=== PATIENT | male | born 1970 | race Caucasian/White ===

== ENCOUNTER 2020-12-06 08:27 | Emergency (ER) | payer BC ==
[~2020-12-06] VITALS: Ht 177.8 cm; Wt 35.0 kg
[2020-12-06 08:44] VITALS: BP 135/96
[2020-12-06] MEDS ORDERED: thiamine 100mg/ml 2ml inj. IV ONE (08:50)
[2020-12-06] MEDS ORDERED: normal saline 1000ML IV soln IV ONE (08:50)
[2020-12-06] MEDS ORDERED: folic acid 1mg/0.2ml inj IV ONE (08:50)
[2020-12-06 09:12] LABS: BASOPHILS % (AUTO) 0.6 % (0-1); EOSINOPHILS # (AUTO) 0.3 X10'3 (0-0.9); EOSINOPHILS % (AUTO) 5.5 % (0-6); HEMATOCRIT 42.7 % (42.0-52.0); HEMOGLOBIN 14.4 g/dl (14.0-17.9); LYMPHOCYTES # (AUTO) 1.2 X10'3 (1.1-4.8); LYMPHOCYTES % (AUTO) 24.4 % (21-51); MEAN CORPUSCULAR HEMOGLOBIN 33.7 PG (27.0-31.0); MEAN CORPUSCULAR HGB CONC 33.8 g/dL (33.0-36.5); MEAN CORPUSCULAR VOLUME 99.6 FL (78-98); MEAN PLATELET VOLUME 7.4 FL (7.4-10.4); MONOCYTES # (AUTO) 0.5 X10'3 (0-0.9); MONOCYTES % (AUTO) 9.9 % (2-12); NEUTROPHILS % (AUTO) 59.6 % (42-75); PLATELET COUNT 216 X10'3 (140-440); RED BLOOD COUNT 4.29 X10'6 (4.70-6.10); RED CELL DISTRIBUTION WIDTH 13.7 % (11.5-14.5); WHITE BLOOD COUNT 5.1 X10'3 (4.5-11.0)
[2020-12-06 09:28] LABS: ALANINE AMINOTRANSFERASE 75 U/L (12-78); ALBUMIN 3.8 G/DL (3.4-5.0); ALKALINE PHOSPHATASE 79 IU/L (46-116); ANION GAP 9 (8-16); ASPARTATE AMINO TRANSFERASE 75 U/L (10-37); BILIRUBIN,TOTAL 0.7 MG/DL (0.1-1.0); BLOOD UREA NITROGEN 21 MG/DL (7-18); BUN/CREATININE RATIO 26.9 (5.4-32.0); CALCIUM 9.4 MG/DL (8.5-10.1); CHLORIDE 101 MMOL/L (99-107); CREATININE 0.78 MG/DL (0.60-1.10); GLUCOSE 104 MG/DL (70-104); LIPASE 141 U/L (73-393); MAGNESIUM 1.8 MG/DL (1.5-2.4); POTASSIUM 3.6 MMOL/L (3.5-5.1); SODIUM 139 MMOL/L (135-145); TOTAL CARBON DIOXIDE 29.5 MMOL/L (24-32); TOTAL PROTEIN 7.5 G/DL (6.4-8.2); eGFR > 90 ML/MIN
[2020-12-06 09:34] LABS: ETHANOL < 0.010 GM/DL (0.0-0.010)
[2020-12-06] MEDS ORDERED: LORA-269 PO (12:20)
[2020-12-06] MEDS ORDERED: ONDA4TAB6 PO (12:20)
[2020-12-06] MEDS ORDERED: GABA300C PO (12:20)
== END 2020-12-06 12:36 | disposition home or self-care (01) ==
LOC: ER 08:27
DX: F10.139 Alcohol abuse with withdrawal, unspecified (principal); R19.7 Diarrhea, unspecified; R42 Dizziness and giddiness; E86.0 Dehydration; F17.200 Nicotine dependence, unspecified, uncomplicated; Z72.89 Other problems related to lifestyle; Z88.8 Allergy status to other drugs, medicaments and biological substances; Z79.899 Other long term (current) drug therapy
CPT/HCPCS: 36415; 80053; 80320; 83690; 83735; 85025; 93005; 99284

== ENCOUNTER 2021-09-18 20:16 | Inpatient (IN) | payer BC, MEDICAID ==
[~2021-09-18] VITALS: Ht 177.8 cm; Wt 84.1 kg
[~2021-09-18 20:16] MED LIST: GABA300C PO; LORA-269 PO; ONDA4TAB6 PO
[2021-09-18] MEDS ORDERED: normal saline 1000ML IV soln IVB ONE (23:35)
[2021-09-18] MEDS ORDERED: normal saline 1000ml 1,000 ML IV ONE (23:35)
[2021-09-18] MEDS ORDERED: thiamine 100mg/ml 2ml inj. IV ONE (23:35)
[2021-09-18] MEDS ORDERED: magnesium 2GM in 50ml NS 50 ML IV ONE (23:35)
[2021-09-18] MEDS ORDERED: thiamine inj. 500 MG in normal saline 100ml IV soln 100 ML IV ONE (23:40)
[2021-09-19 00:01] LABS: BASOPHILS % (AUTO) 0.6 % (0-1); EOSINOPHILS # (AUTO) 0.2 X10'3 (0-0.9); EOSINOPHILS % (AUTO) 3.1 % (0-6); HEMOGLOBIN 13.5 g/dl (14.0-17.9); LYMPHOCYTES # (AUTO) 2.2 X10'3 (1.1-4.8); LYMPHOCYTES % (AUTO) 29.4 % (21-51); MEAN CORPUSCULAR HEMOGLOBIN 34.3 PG (27.0-31.0); MEAN CORPUSCULAR HGB CONC 34.5 g/dL (33.0-36.5); MEAN CORPUSCULAR VOLUME 99.5 FL (78-98); MEAN PLATELET VOLUME 7.1 FL (7.4-10.4); MONOCYTES # (AUTO) 0.6 X10'3 (0-0.9); MONOCYTES % (AUTO) 8.3 % (2-12); NEUTROPHILS # (AUTO) 4.3 X10'3 (1.8-7.7); NEUTROPHILS % (AUTO) 58.6 % (42-75); PLATELET COUNT 224 X10'3 (140-440); RED BLOOD COUNT 3.92 X10'6 (4.70-6.10); RED CELL DISTRIBUTION WIDTH 14.7 % (11.5-14.5); WHITE BLOOD COUNT 7.3 X10'3 (4.5-11.0)
[2021-09-19 00:14] LABS: ALANINE AMINOTRANSFERASE 83 U/L (12-78); ALBUMIN 3.7 G/DL (3.4-5.0); ALKALINE PHOSPHATASE 69 IU/L (46-116); ANION GAP 12 (8-16); ASPARTATE AMINO TRANSFERASE 58 U/L (10-37); BILIRUBIN,TOTAL 0.3 MG/DL (0.1-1.0); BLOOD UREA NITROGEN 15 MG/DL (7-18); CALCIUM 8.6 MG/DL (8.5-10.1); CHLORIDE 106 MMOL/L (99-107); GLUCOSE 93 MG/DL (70-104); POTASSIUM 3.7 MMOL/L (3.5-5.1); SODIUM 143 MMOL/L (135-145); TOTAL CARBON DIOXIDE 25.2 MMOL/L (24-32); TOTAL PROTEIN 7.5 G/DL (6.4-8.2); eGFR > 90 ML/MIN
[2021-09-19 00:17] LABS: ETHANOL 0.136 GM/DL (0.0-0.010); LIPASE 205 U/L (73-393)
[2021-09-19] MEDS ORDERED: potassium CL 10mEq/100ml bag 100 ML IV PRN (03:00)
[2021-09-19] MEDS ORDERED: HYDROcodone/acetaminophen 5mg/325mg tablet PO PRN (03:00)
[2021-09-19] MEDS ORDERED: magnesium Cl slow-release 64mg tablet PO PRN (03:00)
[2021-09-19] MEDS ORDERED: magnesium 2GM in 50ml NS 50 ML IV PRN (03:00)
[2021-09-19] MEDS ORDERED: LORazepam 2 mg/ml vial IV PRN ×5 (03:00)
[2021-09-19] MEDS ORDERED: dextrose 50%-water 50ml dispensing syringe IV PRN (03:00)
[2021-09-19] MEDS ORDERED: dicyclomine 10 MG capsule PO PRN (03:00)
[2021-09-19] MEDS ORDERED: POTASSIUM BICARB 20meq eff tab 20 MEQ TABLET.EFF PO PRN ×2 (03:00)
[2021-09-19] MEDS ORDERED: magnesium hydroxide 30ml (MOM) UD suspension PO PRN (03:00)
[2021-09-19] MEDS ORDERED: loperamide 2mg capsule PO PRN (03:00)
[2021-09-19] MEDS ORDERED: mag hydrox/Alum hydrox/simeth 30ml oral suspension PO PRN (03:00)
[2021-09-19] MEDS ORDERED: acetaminophen 325mg tablet PO PRN (03:00)
[2021-09-19] MEDS ORDERED: diphenhydrAMINE 25mg capsule PO PRN (03:00)
[2021-09-19] MEDS ORDERED: magnesium 4gm in 100ml NS 100 ML IV PRN (03:00)
[2021-09-19] MEDS ORDERED: haloperidol lactate 5mg/ml inj IM PRN ×3 (03:00)
[2021-09-19] MEDS ORDERED: ondansetron/PF 4mg/2ml inj IV PRN (03:00)
[2021-09-19] MEDS ORDERED: haloperidol 5mg tablet PO PRN (03:00)
[2021-09-19] MEDS: LORazepam 1 MG tablet PO PRN ×2 (03:32→13:36)
[2021-09-19 03:34] LABS: MAGNESIUM 1.8 MG/DL (1.5-2.4)
[2021-09-19] MEDS ORDERED: nicotine 14mg patch - 24hr TD ONE (05:25)
[2021-09-19] MEDS ORDERED: folic acid 1mg/0.2ml inj IV SCH (08:00)
[2021-09-19] MEDS ORDERED: thiamine 100mg/ml 2ml inj. IV SCH (08:00)
[2021-09-19] MEDS: enoxaparin 40mg/0.4ml syringe SUBCUT SCH (09:10)
[2021-09-19] MEDS: folic acid 1mg/0.2ml inj IV SCH (09:11)
[2021-09-19] MEDS: thiamine 100mg/ml 2ml inj. IV SCH ×3 (09:11→21:00)
[2021-09-19] MEDS: multivitamins, therapeutics tablet PO SCH (09:11)
[2021-09-19] MEDS: K and/or MAG REPLACEMENT MC SCH ×2 (09:12→20:00)
[2021-09-19] MEDS: docusate sod 100mg capsule PO SCH ×2 (09:12→20:00)
--- NOTE | 2021-09-19 10:08 | NUR ---
Met with patient in regards to alcohol use and to see if patient is interested in resources for treatment options. Patient is interested in outpatient rehab. I talked to patient about getting a sponsor and medication that can help with cravings. I gave patient a list of resources and my card to call me if he has any questions.
[2021-09-19] MEDS ORDERED: NO HOME MEDS (13:59)
--- NOTE | 2021-09-19 18:21 | NUR ---
ASSUMED CARE OF PT. PT WITH EYES CLOSE NON LABORED BREATHING POST ATIVAN. VSS. NO S/S OF DISTRESS. WILL MONITOR.
--- NOTE | 2021-09-20 00:45 | NUR ---
Pt smokes Marijuana once a month and drinks hard alcohol daily. Has hx of heavy cocaine use aprox 10 years ago. Addendum: 09/20/21 at 0106 by Marj Giron RN Amended: Links added.
[2021-09-20 01:28] VITALS: BP 160/106
[2021-09-20] MEDS: LORazepam 1 MG tablet PO PRN ×3 (01:34→10:45)
[2021-09-20 06:00] VITALS: BP 132/94
--- NOTE | 2021-09-20 06:05 | NUR ---
received report from bam rosa
--- NOTE | 2021-09-20 06:05 | NUR ---
Problems reprioritized. Patient report given, questions answered & plan of care reviewed with RN. Addendum: 09/20/21 at 0606 by Easton Ruiz RN Amended: Links added.
[2021-09-20 06:59] LABS: BASOPHILS % (AUTO) 0.7 % (0-1); EOSINOPHILS # (AUTO) 0.3 X10'3 (0-0.9); EOSINOPHILS % (AUTO) 5.5 % (0-6); HEMATOCRIT 37.5 % (42.0-52.0); HEMOGLOBIN 12.8 g/dl (14.0-17.9); LYMPHOCYTES # (AUTO) 1.5 X10'3 (1.1-4.8); LYMPHOCYTES % (AUTO) 27.3 % (21-51); MEAN CORPUSCULAR HEMOGLOBIN 34.1 PG (27.0-31.0); MEAN CORPUSCULAR HGB CONC 34.1 g/dL (33.0-36.5); MEAN CORPUSCULAR VOLUME 100.1 FL (78-98); MEAN PLATELET VOLUME 8.1 FL (7.4-10.4); MONOCYTES # (AUTO) 0.6 X10'3 (0-0.9); MONOCYTES % (AUTO) 10.7 % (2-12); NEUTROPHILS % (AUTO) 55.8 % (42-75); PLATELET COUNT 197 X10'3 (140-440); RED BLOOD COUNT 3.74 X10'6 (4.70-6.10); RED CELL DISTRIBUTION WIDTH 14.6 % (11.5-14.5); WHITE BLOOD COUNT 5.4 X10'3 (4.5-11.0)
[2021-09-20] MEDS: thiamine 100mg/ml 2ml inj. IV SCH (07:04)
[2021-09-20] MEDS: folic acid 1mg/0.2ml inj IV SCH (07:05)
[2021-09-20] MEDS: docusate sod 100mg capsule PO SCH (07:09)
[2021-09-20 07:27] LABS: ALANINE AMINOTRANSFERASE 61 U/L (12-78); ALBUMIN 3.1 G/DL (3.4-5.0); ALKALINE PHOSPHATASE 48 IU/L (46-116); AMYLASE 42 U/L (25-115); ANION GAP 9 (8-16); ASPARTATE AMINO TRANSFERASE 39 U/L (10-37); BILIRUBIN,TOTAL 0.6 MG/DL (0.1-1.0); BLOOD UREA NITROGEN 9 MG/DL (7-18); BUN/CREATININE RATIO 17.6 (5.4-32.0); CALCIUM 8.7 MG/DL (8.5-10.1); CHLORIDE 109 MMOL/L (99-107); CREATININE 0.51 MG/DL (0.60-1.10); GLUCOSE 93 MG/DL (70-104); LIPASE 52 U/L (73-393); MAGNESIUM 1.6 MG/DL (1.5-2.4); PHOSPHORUS 3.4 MG/DL (2.3-4.5); POTASSIUM 3.8 MMOL/L (3.5-5.1); SODIUM 143 MMOL/L (135-145); TOTAL PROTEIN 6.3 G/DL (6.4-8.2); eGFR > 90 ML/MIN
[2021-09-20] MEDS: K and/or MAG REPLACEMENT MC SCH (08:00)
[2021-09-20] MEDS: multivitamins, therapeutics tablet PO SCH (08:00)
[2021-09-20] MEDS: enoxaparin 40mg/0.4ml syringe SUBCUT SCH (08:00)
[2021-09-20 10:00] VITALS: BP 122/89
[2021-09-20] MEDS ORDERED: pneumococcal 23-VAL P-sac vacc 25 mcg/0.5ml vial IMVAC ONE (10:00)
[2021-09-20] MEDS ORDERED: MULT-1085 PO ×2 (10:49)
[2021-09-20] MEDS ORDERED: NALT50TA PO ×2 (10:49)
[2021-09-20] MEDS ORDERED: FOLI0.4T6 PO (10:49)
[2021-09-20] MEDS ORDERED: THIA50TA10 PO ×2 (10:49)
[2021-09-20] MEDS ORDERED: NICO-731 TOP ×2 (10:51)
--- NOTE | 2021-09-20 13:33 | NUR ---
pt refused his pneumovaccine, pt d/c with instructions, understanding of instructions and w/all belongings walking out to private vehicle to go home and f/u w/pcp
[2021-09-21] MEDS ORDERED: LORazepam 2 mg/ml vial IV PRN (03:00)
[2021-09-21] MEDS ORDERED: LORazepam 1 MG tablet PO PRN (03:00)
[2021-09-21] MEDS ORDERED: NO HOME MEDS (14:49)
[2021-09-21] MEDS ORDERED: GABA300C PO (15:37)
[2021-09-23] MEDS ORDERED: LORazepam 2 mg/ml vial IV PRN (03:00)
[2021-09-23] MEDS ORDERED: LORazepam 1 MG tablet PO PRN (03:00)
== END 2021-09-20 13:30 | disposition home or self-care (01) | DRG 775 ==
LOC: ER 20:17 → ED HOLD 09-19 03:10 → ORTHO 4S 09-20 00:30
PROVIDERS: ADMIT Internal Medicine; ATTEND Internal Medicine
DX: F10.231 Alcohol dependence with withdrawal delirium (principal); F12.90 Cannabis use, unspecified, uncomplicated; F17.210 Nicotine dependence, cigarettes, uncomplicated; Z20.822 Contact with and (suspected) exposure to COVID-19; Z56.0 Unemployment, unspecified; Z88.8 Allergy status to other drugs, medicaments and biological substances
CPT/HCPCS: 36415; 71045; 76700; 80053; 80320; 80346; 82150; 83690; 83735; 84100; 84484; 85025; 85610; 87081; 87635; 96365; 96366; 97116; 97161; 97530; 99285; G0378; J1650; J2060; J2405; J3411; J3475; J3490; J7030

== ENCOUNTER 2021-09-21 11:40 | Emergency (ER) | payer MEDICAID ==
[~2021-09-21] VITALS: Ht 177.8 cm; Wt 71.8 kg
[~2021-09-21 11:40] MED LIST changes: +FOLI0.4T6 PO; -GABA300C PO; -LORA-269 PO; +MULT-1085 PO; +NALT50TA PO; +NICO-731 TOP; -ONDA4TAB6 PO; +THIA50TA10 PO
--- NOTE | 2021-09-21 12:09 | NUR ---
PT OXYGEN SAT DROPPED TO 85 %ON RA WHILE PT WAS SLEEPING ,HIM ON 2L N.C SPO2 95%.
--- NOTE | 2021-09-21 13:55 | NUR ---
pt requested to notify the mother that he is here .called at [phone] and spoke to austin {mother } informed that pt is here waiting to be seen by the
[2021-09-21] MEDS ORDERED: NO HOME MEDS (14:49)
[2021-09-21] MEDS ORDERED: GABA300C PO (15:37)
[2021-09-21 15:52] VITALS: BP 112/80
== END 2021-09-21 15:55 | disposition home or self-care (01) ==
LOC: ER 11:41
DX: F10.129 Alcohol abuse with intoxication, unspecified (principal); Z02.89 Encounter for other administrative examinations; F17.200 Nicotine dependence, unspecified, uncomplicated; F12.10 Cannabis abuse, uncomplicated; Z88.6 Allergy status to analgesic agent; Z79.899 Other long term (current) drug therapy; Y90.9 Presence of alcohol in blood, level not specified
CPT/HCPCS: 99283; A4615

== ENCOUNTER 2024-12-20 09:38 | Inpatient (IN) | payer MEDICAID ==
[~2024-12-20] VITALS: Ht 177.8 cm; Wt 90.0 kg
[~2024-12-20 09:38] MED LIST changes: -FOLI0.4T6 PO; +GABA300C PO; -MULT-1085 PO; -NALT50TA PO; -NICO-731 TOP; +NO HOME MEDS; -THIA50TA10 PO
[2024-12-20] MEDS: normal saline 1000ML IV soln IVB ONE (10:47)
[2024-12-20 10:52] LABS: MEAN PLATELET VOLUME 7.1 FL (7.4-10.4); RED CELL DISTRIBUTION WIDTH 14.6 % (11.5-14.5)
[2024-12-20 10:56] LABS: LEUKOCYTE ESTERASE ,URINE NEGATIVE (Neg); NITRITES, URINE NEGATIVE (Neg); OCCULT BLOOD,URINE TRACE-INTACT (Neg)
--- NOTE | 2024-12-20 10:56 | ELECTROCARDIOGRAPH REPORT ---
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 Edson Belcher Measurements Intervals [place] Rate: 83 P: 53 SC: 182 QRS: 10 QRSD: 112 T: 51 QT: 390 QTc: 459 Interpretive Statements Sinus rhythm Borderline intraventricular conduction delay RSR' in V1 or V2, right VCD or RVH Electronically Signed On 12-20-2024 11:40:[address] Edson Belcher Please click the below link to view image of tracing.
[2024-12-20 11:00] LABS: UA COLLECTION TYPE URINAL
[2024-12-20 11:02] LABS: HYALINE CASTS 0-3 /LPF (NEGATIVE); MUCUS STRANDS NONE SEEN /LPF (Neg); SQUAMOUS EPITHELIAL CELL,UR NONE SEEN /LPF (FEW)
[2024-12-20] MEDS: ondansetron/PF 4mg/2ml inj IV ONE (11:02)
[2024-12-20] MEDS: magnesium sulf-water 2g/50mL 50 ML IV ONE (11:05)
[2024-12-20 11:11] LABS: ETHANOL 431 MG/DL (<10)
[2024-12-20 11:13] LABS: URINE AMPHETAMINE SCREEN NEGATIVE (Neg); URINE BARBITUATE SCREEN NEGATIVE (Neg); URINE BENZODIAZEPINES SCREEN NEGATIVE (Neg); URINE CANNABINOID SCREEN NEGATIVE (Neg); URINE COCAINE SCREEN NEGATIVE (Neg); URINE METHADONE SCREEN NEGATIVE (Neg); URINE OPIATE SCREEN NEGATIVE (Neg); URINE PHENCYCLIDINE SCREEN NEGATIVE (Neg)
--- NOTE | 2024-12-20 11:23 | Physician Documentation ---
History of Present Illness ~ Chief Complaint: Suicidal Ideation Stated Complaint: ETOH/SI Time Seen by MD: 10:20 OK to notify your PCP?: Yes Primary Medical Doctor: None Source: patient, RN/MD, RN notes reviewed, old records Mode of Arrival: POV Exam Limitations: no limitations HPI This patient is a 54 y/o male brought in by his mother for alcohol intoxication. Patient was reportedly sober in 2021, but relapsed and has since been binge drinking on and off. When he does drink, he states he routinely drinks about 1 to 1.5 pints a day of liquor. He states his most recent binge drinking episode has been over the past two days. Patient was making suicidal statements per his mother. He is also asking for help with detox as he is trying to quit but is scared of withdrawal symptoms. He reports current symptoms including abdominal pain and diarrhea. He denies any nausea or vomiting. He also endorses feeling shaky. Patient denies any other associated symptoms at this time. Patient denies any other alleviating or exacerbating factors. Medication Reconciliation Allergies: Coded Allergies: aspirin (Verified Allergy, Unknown, "got sick as a kid" per pt, 12/20/24) Miscellaneous Medications Home Med List (No Home Medications), (Reported) Discontinued Medications Gabapentin (Neurontin), 1 CAP PO Q8H Discontinued Reason: Other Past Medical History Past Medical History: No Pertinent History, Hernia, Kidney Stones, Depression Past Surgical History: other Other Past Surgical History: Hernia Repair Patient History: Patient reports no known family medical history. Smoking Status: Never smoker Alcohol Use: Alcoholic Drug Use: marijuana, methamphetamine, cocaine Lives with: Mother Lives In: Home Occupation: employed Review of Systems All Other Systems at this time: Reviewed and Negative Physical Exam Vital Signs: RN Vital Signs have been reviewed: Yes, Temperature: 98.4, Source: Oral, Heart Rate: 92, Respiratory Rate: 19, BP: 125/86, Pulse Oximetry: 93, Weight: 90.000 Oxygen Flow Rate: 0 Physical Exam General: Disheveled. Slurred speech. The patient is otherwise well developed, well nourished, nontoxic appearing and is in no acute distress. Skin: [place], warm and dry with no rashes. HEENT: Head was normocephalic and atraumatic. Eyes - pupils equal, round, reactive to light and accommodation. Extraocular movements were intact. Co njunctivae were nonicteric. The mouth and oropharynx were clear with moist mucous membranes. There were no pharyngeal exudates or erythema. Neck: Supple and nontender. There was no jugular venous distention, lymphadenopathy, thyromegaly or masses. Chest: Clear to auscultation bilaterally without wheezes, rales or rhonchi. No accessory muscle use. No dullness to percussion. Heart: Rate regular and rhythmic. S1, S2. No murmurs. Palpation of the chest wall was normal. No rubs or thrills. Abdomen: Soft, nontender and nondistended. Positive bowel sounds. No guarding or rebound. No hepatosplenomegaly or palpable masses. Extremities: No cyanosis, clubbing or edema. The patient moves all extremities. Pulses were equal and symmetric. Neurologic: Cranial nerves II-XII were intact. Sensation was intact to light touch throughout. Motor strength was 5/5 in all four extremities. Deep tendon reflexes were intact in both upper and lower extremities. Psychologic: The patient was oriented to person, place and time. The patient demonstrated appropriate judgement and insight. Progress Progress Note 1340: Case discussed with hospitalist who agrees to evaluate patient for admission. Results/Orders Reviewed/noted all lab results: Yes Results/Orders Orders - TONY BELCHER MD Electrocardiogram (12/20/24 10:21) Monitor (12/20/24 10:21) Saline Lock (12/20/24 10:21) Regular Diet (12/20/24 Lunch) Page Hospitalist (12/20/24 13:46) Fill Out Med Reconciliation (12/20/24 13:46) Completed Orders - TONY BELCHER MD Cbc/Diff (12/20/24 10:21) Lipase (12/20/24 10:21) Ethanol (12/20/24 10:21) MG (12/20/24 10:21) Electrocardiogram (12/20/24 10:21) Ondansetron Inj. (Zofran 4mg/2ml Vial) (12/20/24 10:25) Normal Saline 1000ml (0.9% Sodium Chlori (12/20/24 10:25) Hs Troponin I W Calculations (12/20/24 10:21) Magnesium Sulf-Water 2g/50ml (Magnesium (12/20/24 10:25) Drug Screen, Urine (12/20/24 10:24) Ua W/Microscopic, Cult If Ind (12/20/24 10:39) CMP (12/20/24 10:38) Medications Received in ER Medications (Trade) Dose Ordered Sig/Vonda Route PRN Reason Start Time Stop Time Status Last Admin Dose Admin (Zofran 4mg/2ml vial) 4 mg ONCE ONCE IV 12/20/24 10:25 12/20/24 10:26 DC 12/20/24 11:02 4 MG (0.9% sodium chloride (NS) 1000ml IV soln) 1,000 ml ONCE ONCE IVB 12/20/24 10:12/20/24 10:26 DC 12/20/24 10:47 1,000 ML Magnesium Sulfate 50 ml @ 25 mls/hr ONCE ONCE IV 12/20/24 10:12/20/24 12:24 DC 12/20/24 11:05 25 MLS/HR Vital Signs 12/20/24 12/20/24 12/20/24 12/20/24 09:43 09:52 10:00 10:10 Temp 98.4 Pulse 117 110 108 Resp 16 14 14 B/P (MAP) 135/97 117/95 (102) 130/99 (109) Pulse Ox 94 94 95 O2 Flow Rate 0 0 0 12/20/24 12/20/24 12/20/24 12/20/24 10:58 11:25 11:53 12:30 Pulse 92 87 89 83 Resp 19 16 16 14 B/P (MAP) 125/86 (99) 114/80 (91) 119/86 (97) 110/70 (83) Pulse Ox 93 95 95 95 O2 Flow Rate 0 0 0 0 12/20/24 12/20/24 13:00 13:31 Pulse 87 94 Resp 14 15 B/P (MAP) 115/75 (88) 123/79 (94) Pulse Ox 94 96 O2 Flow Rate 0 0 Laboratory Tests Test 12/20/24 10:38 12/20/24 10:39 White Blood Count 6.5 Red Blood Count 4.63 L Hemoglobin 15.5 Hematocrit 44.5 Mean Corpuscular Volume 96.3 Mean Corpuscular Hemoglobin 33.4 H Mean Corpuscular Hemoglobin Concent 34.7 Red Cell Distribution Width 14.6 H Platelet Count 261 Mean Platelet Volume 7.1 L Neutrophils (%) (Auto) 53.1 Lymphocytes (%) (Auto) 33.8 Monocytes (%) (Auto) 9.4 Eosinophils (%) (Auto) 2.9 Basophils (%) (Auto) 0.8 Neutrophils # (Auto) 3.5 Lymphocytes # (Auto) 2.2 Monocytes # (Auto) 0.6 Eosinophils # (Auto) 0.2 Basophils # (Auto) 0.1 CBC Comment Sodium Level 142 Potassium Level 3.6 Chloride Level 106 Carbon Dioxide Level 23.8 L Anion Gap 12 Blood Urea Nitrogen 15 Creatinine 0.52 L Estimated GFR/1.73 m2 > 90 BUN/Creatinine Ratio 28.8 H Glucose Level 117 H Calcium Level 8.4 L Magnesium Level 2.1 Total Bilirubin 0.2 Aspartate Amino Transf (AST/SGOT) 32 Alanine Aminotransferase (ALT/SGPT) 35 Alkaline Phosphatase 66 Troponin I High Sensitivity 10 Total Protein 7.9 Albumin 3.5 Globulin 4.4 H Albumin/Globulin Ratio 0.8 L Lipase 63 Chemistry Comments Ethyl Alcohol Level 431 *H Urine Specimen Description Urinal Urine Color Straw Urine Clarity Clear Urine pH 5.5 Urine Specific Hunt <=1.005 Urine Protein Negative Urine Glucose (UA) Negative Urine Ketones Negative Urine Occult Blood Trace-intact Urine Nitrite Negative Urine Bilirubin Negative Urine Urobilinogen 0.2 Urine Leukocyte Esterase Negative Urine RBC 0-2 Urine WBC None seen Urine Squamous Epithelial Cells None seen Urine Bacteria None seen Urine Hyaline Casts 0-3 Urine Mucus None seen Urine Culture Indicated Not ind Volume Urine Centrifuged 10 ml Urine Comment Urine Opiates Screen Negative Urine Methadone Screen Negative Urine Fentanyl Screen Negative Urine Barbiturates Screen Negative Urine Phencyclidine Screen Negative Urine Amphetamines Screen Negative Urine Benzodiazepines Screen Negative Urine Cocaine Screen Negative Urine Cannabinoids Screen Negative Drug Screen Comment Re-Evaluation Re-Evaluation : Re-Evaluation: Worsened Progress Patient is nauseated he is a bit shaky. He also seems a bit confused but he is also quite intoxicated. Patient is surprisingly is talking to me with an alcohol level of 431. Tox screen is negative for other drugs. Laboratory work shows a potassium of 3.6 borderline low but normal CO2 shows mild metabolic acidosis with a CO2 of 23.8. Patient's BUN creatinine ratio is 28.8 showing signs of dehydration. CBC has no anemia most likely hemoconcentrated MCV is slightly elevated at 96.3. Patient was given Zofran for his nausea given fluid boluses. Patient is started to show some signs of worsening and most likely will go into full withdrawals. He states he has bad withdrawals. He drinks heavily. Patient will receive benzodiazepines when he becomes a bit more unstable but at this time he seems to be doing a bit better. Patient also received thiamine and folic acid. Continuous toll operator interpretation shows sinus tachycardia heart rate 100s, abnormal, my interpretation. Pulse oximetry monitor interpretation shows normal oxygenation at 96% room air, normal, my interpretation. 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 Tony Belcher Measurements Intervals [place] Rate: 83 P: 53 [place]: 182 QRS: 10 QRSD: 112 T: 51 QT: 390 QTc: 459 Interpretive Statements Sinus rhythm Borderline intraventricular conduction delay RSR' in V1 or V2, right VCD or RVH Electronically Signed On 12-20-2024 11:40:[address] Tony Belcher Please click the below link to view image of tracing. EKG Date and Time:12/20/24 1052 Electronically Signed by: TONY BELCHER MD Date and Time: 12/20/24 1140 NO PRIMARY CARE PROVIDER~ cc: ~ Medical Decision Making Additional information obtaine: old records Findings Withdrawal seizures, electrolyte abnormalities, infection, metabolic encephalopathy Differential Dx:Considerations: Include: Alcohol abuse, Anxiety, Bipolar disorder, Conversion disorder, Depression, Encephaloathy, Homicidal, Panic disorder, Personality disorder, Schizophrenia, Substance abuse, Suicidal, Other Departure Time of Disposition: 13:40 Disposition: 09 ADMITTED INPATIENT Admitted to Inpatient Unit: yes, to hospitalist Admission Level of Care: Med/Surg with Tele Impression: Primary Impression: Alcohol withdrawal Qualified Codes: F10.930 - Alcohol use, unspecified with withdrawal, uncomp licated Additional Impressions: Weakness Dehydration Metabolic encephalopathy Condition: Guarded Referrals: NO PRIMARY CARE PROVIDER (PCP) Education Educated: Patient, Family Educated regarding: diagnosis Signature Scribe Signature: Scribed for Tony Belcher MD by Tony Belcher MD . 12/20/24 11:44 Attestation: The note accurately reflects work and decisions made by me.Tony Belcher MD 12/20/24 11:20 TONY BELCHER MD Dec 20, 2024 11:23
[2024-12-20 11:44] LABS: CREATININE 0.52 MG/DL (0.60-1.10); TOTAL CARBON DIOXIDE 23.8 MMOL/L (24-32); eCRCL 170 ML/MIN; eGFR > 90 ML/MIN
[2024-12-20] MEDS ORDERED: magnesium hydroxide 30ml (MOM) UD suspension PO PRN (13:50)
[2024-12-20] MEDS ORDERED: magnesium Cl slow-release 64mg tablet PO PRN (13:50)
[2024-12-20] MEDS ORDERED: magnesium sulf-water 4G/100mL 100 ML IV PRN (13:50)
[2024-12-20] MEDS ORDERED: potassium Cl 40MEQ/1/2NS 520ml 520 ML IV PRN (13:50)
[2024-12-20] MEDS ORDERED: bisacodyl 10mg suppository rectal RC PRN (13:50)
[2024-12-20] MEDS ORDERED: ondansetron 4mg rapidly disintigrating tab PO PRN (13:50)
[2024-12-20] MEDS ORDERED: mag hydrox/Alum hydrox/simeth 30ml oral suspension PO PRN (13:50)
[2024-12-20] MEDS ORDERED: HYDROcodone/acetaminophen 5mg/325mg tablet PO PRN (13:50)
[2024-12-20] MEDS ORDERED: metoclopramide 5 mg/ml inj IV PRN (13:50)
[2024-12-20] MEDS ORDERED: haloperidol lactate 5mg/ml inj IM PRN (13:50)
[2024-12-20] MEDS ORDERED: ondansetron/PF 4mg/2ml inj IV PRN (13:50)
[2024-12-20] MEDS ORDERED: magnesium sulf-water 2g/50mL 50 ML IV PRN (13:50)
[2024-12-20] MEDS ORDERED: dextrose 50%-water 50ml dispensing syringe IV PRN (13:50)
[2024-12-20] MEDS ORDERED: HYDROcodone/acetaminophen 10/325mg tab PO PRN (13:50)
[2024-12-20] MEDS ORDERED: potassium Cl 20 mEq SR tablet PO PRN ×2 (13:50)
[2024-12-20] MEDS ORDERED: acetaminophen 650mg rectal suppository RC PRN (13:50)
--- NOTE | 2024-12-20 14:01 | HISTORY AND PHYSICAL ---
History & Physical Providers to CC Please disregard this entry, duplicate, thank you, History of Present Illness Reason for Admit\\Complaint: As above History of Present Illness This patient is a 54 y/o male brought in by his mother for alcohol intoxication. Patient was reportedly sober in 2021, but relapsed and has since been binge drinking on and off. When he does drink, he states he routinely drinks about 1 to 1.5 pints a day of liquor. He states his most recent binge drinking episode has been over the past two days. Patient was making suicidal statements per his mother. He is also asking for help with detox as he is trying to quit but is scared of withdrawal symptoms. He reports current symptoms including abdominal pain and diarrhea. He denies any nausea or vomiting. He also endorses feeling shaky. Patient denies any other associated symptoms at this time. Patient denies any other alleviating or exacerbating factors. Allergies: Coded Allergies: aspirin (Verified Allergy, Unknown, "got sick as a kid" per pt, 12/20/24) Home Medications Home Medications Active Reported No Home Medications (Home Med List) Each Family History Family History: Patient reports no known family medical history. Exam Vitals: Vital Signs Date Time Temp Pulse Resp B/P (MAP) Pulse Ox O2 Delivery O2 Flow Rate FiO2 12/20/24 13:31 94 15 123/79 (94) 96 0 12/20/24 09:43 98.4 Diagnostic Data Last Recorded Lab Results: 12/20/24 1038 12/20/24 1038 Additional Plan Okay Sepsis Screening Reassessment Date: Dec 20, 2024 Date of Service: Dec 20, 2024 Billing Provider: LOCO MIGUEL MD Common Visit Codes: NOT BILLABLE LOCO MIGUEL MD Dec 20, 2024 14:01
--- NOTE | 2024-12-20 14:55 | HISTORY AND PHYSICAL ---
History & Physical Providers to CC Chief complaint, alcohol intoxication, asking for help and detoxification ~ History of Present Illness Reason for Admit\\Complaint: As above History of Present Illness This patient is a 54 y/o male with history of alcoholism chronic, including currently abusing alcohol, chronic tobacco abuse including currently, hepatic steatosis secondary to alcohol abuse, history of remote history of methamphetamine and cocaine abuse, clean now, history of abdominal surgery, low- back pain kidney stones, ventral hernia, presented today to emergency department chief complaint alcoholism, acute alcohol intoxication, altered level of consciousness, asking get help for detoxication. In addition patient was brought in by his mother for alcohol intoxication. Patient was reportedly sober in 2021, but relapsed and has since been binge drinking on and off. When he does drink, he states he routinely drinks about 1 to 1.5 pints a day of liquor. He states his most recent binge drinking episode has been over the past two days. Patient was making suicidal statements per his mother. He is also asking for help with detox as he is trying to quit but is scared of withdrawal symptoms. He reports current symptoms including abdominal pain and diarrhea. He denies any nausea or vomiting. He also endorses feeling shaky.Patient denies any other associated symptoms at this time. Patient denies any other alleviating or exacerbating factors. In emergency department patient was evaluated by physician was diagnosed with alcoholism, alcohol intoxication acute, and alcohol withdrawal syndrome, and decision was made to admit patient for further evaluation and treatment, no additional complaint or concern. Allergies: Coded Allergies: aspirin (Verified Allergy, Unknown, "got sick as a kid" per pt, 12/20/24) Active prescriptions I reviewed reconciled Home Medications Home Medications Active Reported No Home Medications (Home Med List) Each Past Medical History Past Medical History In as in HPI Past Surgical History Surgical History Comment As in HPI Family History Family History: Family history was reviewed; no changes noted. Past Social History Social History Comment Deny illicit drug use, positive for chronic tobacco alcohol use including currently, live with the family good social support Health Maintenance Health Maintenance Noncontributory ROS ROS Constitutional : no fever , no chills, or weakness. No diaphoresis. Allergic/Immunologic, no lymphadenopathy, no hives, no skin eruptions. Eyes, no recent visual changes, no eye pain, no photophobia. Ears, nose, mouth, throat, no sore throat, no nosebleed, no ear pain. Cardiovascular, no palpitations, skipped beats, chest pain, no peripheral edema, Respiratory, no dyspnea, orthopnea, cough, hemoptysis, chest wall pain. Gastrointestinal, no abdominal pain, nausea, vomiting, constipation or diarrhea. : no dysuria, hematuria, pelvic pain, urethral d/c. Endocrine, no polyuria, polydipsia, recent unintentional weight gain or loss. Hematologic/Lymphatic, no petechiae, no enlarged lymph nodes, no bone pain. Integumentary, no rash, no skin lesions, Musculoskeletal, no muscle aches, or pain, no muscle cramps, no recent change in gait Neurological, inebriated secondary to alcohol abuse, no dizziness, no headache, no syncope, no paresthesia. Psychiatric, no delusions, visual hallucinations, or hearing hallucinations. ROS - in rest is as in HPI. Exam Vitals: Vital Signs Date Time Temp Pulse Resp B/P (MAP) Pulse Ox O2 Delivery O2 Flow Rate FiO2 12/20/24 14:13 96 18 113/72 (86) 95 0 12/20/24 09:43 98.4 Vital signs, stable ,afebrile. Pulse Oximetry reflects adequate oxygenation. BMI is 28, weight 90 kg General: well developed, well nourished. Inebriated, Awake , alert, and oriented x4, resting comfortably in the bed, in no acute distress . Skin: Warm, dry, no pallor, no rash or petechiae. HEENT: Atraumatic, normocephalic, EOMI, anicteric sclera B; pink conjunctiva; PERRLA, normal oropharynx, moist oral and nasal mucosa. Tympanic membrane , nose , throat clear. Neck: Trachea midline. Supple, full range of motion, no JVD, bruit , hepatojugular reflex , lymphadenopathy or masses, or other lesions Cardiac: Regular rhythm, regular rate no murmurs, rubs, or gallops. Normal S1 and S2, no S3 noticed. PMI is normal. Respiratory: Equal breath sounds bilaterally, no tachypnea; lungs clear to auscultation bilaterally, no wheezing ,rub or rales, or crackles. Chest wall is symmetric and without deformity. No signs of trauma. Chest wall is nontender. No signs of respiratory distress. Resonance is normal upon percussion bilaterally. Gastrointestinal: Abdomen symmetric, non-distended, soft, non-tender, normal bowel sounds x4 quadrant, normoactive, no hepatosplenomegaly , no masses , no bruit, no flank pain bilaterally. No voluntary guarding, rebound, or rigidity. No tenderness to percussion. No pulsatile masses. Equal femoral pulses. No Martin's sign or McBurney point tenderness. Back; no CVA tenderness bilaterally, no deformities. Neck and back are without deformity as well. No tenderness noted on palpation of the spinous processes. Spinous processes are midline. Cervical, thoracic, and lumbar paraspinal muscles are not tender and are without spasm. : normal external genitalia, without lesions, swelling, masses or tenderness. Musculoskeletal: Extremities, normal range of motion, non-tender, muscle strength 5/5 x 4. Negative Homans signs bilaterally on lower extremity. Distal pulses full symmetrical, no clubbing, cyanosis , edema. Neurological: Inebriated, Speech is clear, alert, and oriented x 4. No motor or sensory deficit, deep tendon reflexes normal, cerebellar intact. Cranial nerves II-XII intact. Psych: Inebriated, Alert and or appropriate, normal affect. Vascular: Good distal pulses, which are equal x4; capillary refill less than 2 seconds. Lymphatic, no lymphadenopathy. Diagnostic Data Last Recorded Lab Results: 12/20/24 1038 12/20/24 1038 Counseling Services Smoking & Tobacco Cessation: 3-10 Minutes Advance Care Planning Advanced Care plannin - 30 Minutes Additional Plan Assessment Chronic alcoholism including ongoing abusing alcohol Acute alcohol intoxication Alcohol withdrawal syndrome Chronic tobacco abuse including currently Metabolic encephalopathy secondary to alcoholism, and alcohol intoxication acute Hepatic steatosis secondary to alcohol abuse Remote history of methamphetamine cocaine abuse, clean now Acute respiratory failure secondary to hypoxia Additional comorbidities, history of kidney stones, ventral hernia, low-back pain, abdominal surgery Plan IV fluids keep patient well hydrated euvolemic Oxygen supplement on board Alcohol withdrawal protocol Consulted for 5 minutes to stop using alcohol and tobacco patient agrees started to nicotine patch Substance abuse navigator consult ordered Additional lab work pending Psychiatric evaluation ordered and is pending I reconciled home medications DVT gastropathy prophylaxis addressed Sepsis Screening Reassessment Date: Dec 20, 2024 Date of Service: Dec 20, 2024 Billing Provider: LOCO MIGUEL MD Common Visit Codes: [id number] INP/OBS CARE (HIGH) Secondary Visit Codes: 17173-[id number] CHNG SMOKING 3-10M, [id number] CARE PLAN 30 MINUTES LOCO MIGUEL MD Dec 20, 2024 14:55
[2024-12-20 15:07] LABS: APTT 26 SECONDS (22-32); INR 1.0 INR
[2024-12-20 15:19] LABS: PHOSPHORUS 2.7 MG/DL (2.3-4.5); PRO BRAIN NATRIURETIC PEPTIDE 33.0 PG/ML (0-125)
[2024-12-20] MEDS: K and/or MAG REPLACEMENT MC SCH (20:00)
[2024-12-20] MEDS: docusate sod 100mg capsule PO SCH (20:00)
[2024-12-20] MEDS: heparin, porcine 5000 units/ml vial SQ SCH (20:43)
[2024-12-20 21:00] VITALS: BP 144/94; PULSE 55; RESP 14; TEMP 99.4; O2SAT 94
[2024-12-20] MEDS: thiamine 100mg/ml 2ml inj. IV SCH (22:24)
[2024-12-21] VITALS (7 sets, daily range): BP systolic 139–157; BP diastolic 84–98; PULSE 78–98; RESP 12–20; TEMP 96.9–98.1; O2SAT 94–98
[2024-12-21 05:54] LABS: MEAN PLATELET VOLUME 7.4 FL (7.4-10.4); RED CELL DISTRIBUTION WIDTH 14.6 % (11.5-14.5)
[2024-12-21 06:25] LABS: CREATININE 0.51 MG/DL (0.60-1.10); TOTAL CARBON DIOXIDE 26.1 MMOL/L (24-32); eCRCL 173 ML/MIN; eGFR > 90 ML/MIN
[2024-12-21] MEDS: folic acid 1mg/0.2ml inj IV SCH (08:59)
[2024-12-21] MEDS: pantoprazole 40mg Tablet.DR PO SCH (09:00)
[2024-12-21] MEDS: nicotine 21mg patch - 24 hr TD SCH (09:01)
--- NOTE | 2024-12-21 15:27 | PROGRESS NOTE- Residence ---
Progress Note - Resident Providers to CC Resident Creating Document: AYLEEN FERRER RES ~ Antibiotic Timeout Antibiotic Ordered?: No Subjective The patient was evaluated at the bedside. He reports consuming approximately 2 pints of vodka daily. He was intoxicated yesterday and has no recollection of events prior to his arrival at the hospital. Currently, the patient is asymptomatic, is able to tolerate an oral diet, and denies any symptoms such as nausea, vomiting, abdominal pain, tremors, or anxiety. Additionally, the patient indicated that he experienced suicidal thoughts while under the influence of alcohol yesterday; however, he has since denied any suicidal ideation or plans today. Objective Vital Signs Date Time Temp Pulse Resp B/P (MAP) Pulse Ox O2 Delivery O2 Flow Rate FiO2 12/21/24 10:00 98.1 92 20 150/93 (112) 97 Room Air 12/21/24 03:25 0 21 Result Diagram: 12/21/24 0450 12/21/24 0450 Awake , alert, and oriented x4 HEENT: Atraumatic, normocephalic, EOMI, anicteric sclera ; pink conjunctiva Neck: Trachea midline. Supple, full range of motion, no JVD Cardiac: Regular rhythm, regular rate with no murmurs all over the precordium. Respiratory: Equal breath sounds bilaterally, no tachypnea, no wheezing ,rub or rales, Chest wall is symmetric and without deformity. Gastrointestinal: Abdomen symmetric, non-distended, soft, non-tender, normal bowel sounds x4 quadrant, normoactive, no hepatosplenomegaly Musculoskeletal: No pedal edema Neurological: Mental status exam: alert and consciousness, orientation, memory, speech. No tremors noted. - Cranial nerve test: Cranial nerves 2-12 intact - Motor system: Normal Nutrition, normal tone, Power 5/5, no involuntary movements - Sensory system: Intact - Reflex testing: Biceps, triceps and knee reflexes 2+ - Cerebellar: Normal Skin: Warm and dry Coagulation Studies Laboratory Tests Test 12/20/24 14:45 Prothrombin Time 9.9 SECONDS (9.0-12.0) INR International Normalized Ratio 1.0 INR Activated Partial Thromboplast Time 26 SECONDS (22-32) Coagulation Comments Advance Care Planning Advanced Care plannin - 30 Minutes (Full code) Plan Plan Assessment: 54-year-old male patient admitted for alcoholic intoxication and concerns regarding suicidal ideation. 1. Alcohol Use Disorder: Acute Intoxication - The patient presented after consuming vodka in the morning and was found intoxicated in a [facility]. - He typically drinks two pints of vodka daily and has requested help to stop. - Currently, he is asymptomatic with no signs of alcohol withdrawal. Laboratory tests show a normal INR, liver enzymes, and an albumin level of 3.5. There are no indications of cirrhosis. - The patient has a remote history of cocaine use but has been sober for over 15 years. A urine drug screen is negative. - Ethanol level: 431. Plan: - An abdominal ultrasound has been ordered. - The patient has been placed on alcohol withdrawal protocol, including benzodiazepines, thiamine, and folic acid. - Orders have been placed for [employer] social worker and a substance use navigator; the patient needs resources to help stop drinking. - The plan is to discharge him with naltrexone as soon as he is cleared by the [facility]. - IV fluids have been discontinued. 2. Suicidal Ideation: - The patient reported having a plan to harm himself yesterday while intoxicated. - Today, he has a normal psychiatric physical exam and denies any suicidal ideation or plans to hurt himself. - He is clinically stable and reports no visual or auditory hallucinations. - The patient has been placed on a 1799 observation and a sitter has been requested. - He is medically cleared for a [facility] evaluation. 3. Acute Hypoxemic Respiratory Failure ruled out - The patient used oxygen and displayed peripheral oximetry of 99% on 2 L. - He reports no shortness of breath, cough, or chest pain, and his respiratory physical exam is unremarkable. - There are no signs of respiratory failure. Code Status: Full code DVT Prophylaxis: Heparin Analgesia/Sedation: [place] Line/Tube: PIV GI Prophylaxis: Pantoprazole Nutrition: Regular diet Prognosis: Guarded Physical Therapy: Not needed Disposition: The patient has been placed on a 1799 observation with a sitter due to reported suicidal ideation. He is medically cleared for a [facility] evaluation. Resident MD attestation The above note has been reviewed and supervised by a senior resident PGY2/PGY3 Patient was seen, examined and discussed with the attending physician Date of Service: Dec 21, 2024 Billing Provider: GENIA ALVARADO MD, LUCAS, RES Dec 21, 2024 15:27
--- NOTE | 2024-12-21 15:50 | RADIOLOGY REPORT ---
CLINICAL HISTORY: alcohol use disorder TECHNIQUE: Transabdominal sonogram was performed of the right upper quadrant. COMPARISON: ULTRASOUND OF ABDOMEN on DOS: 09/19/21 FINDINGS: The liver is increased in echogenicity. There is no focal parenchymal abnormality. No intrahepatic biliary ductal dilatation is present. The liver measures 16.7 cm. The gallbladder is normal with no evidence for stones or wall thickening. The common bile duct is normal in caliber, measuring 3 mm. The pancreas is not seen. The right kidney is normal in echogenicity and measures 12.9 cm in length. There is no evidence for hydronephrosis or calculi. IMPRESSION: Fatty liver.
[2024-12-21] MEDS: FLU VACC TS2025-26(6MOS UP)/PF (FLULAVAL) 45 MCG/0.5 ML SYRINGE IMVAC ONE (22:28)
[2024-12-22 05:50] LABS: MEAN PLATELET VOLUME 7.8 FL (7.4-10.4); RED CELL DISTRIBUTION WIDTH 14.4 % (11.5-14.5)
[2024-12-22 06:00] VITALS: BP 142/97; PULSE 69; RESP 16; TEMP 96.9; O2SAT 95
[2024-12-22 06:02] LABS: CREATININE 0.62 MG/DL (0.60-1.10); TOTAL CARBON DIOXIDE 28.4 MMOL/L (24-32); eCRCL 142 ML/MIN; eGFR > 90 ML/MIN
[2024-12-22 08:00] VITALS: BP_SYST 145; BP_SYST 165; BP_SYST 176; BP_DIAS 100; BP_DIAS 105; PULSE 80; PULSE 95; RESP 16; RESP 18; O2SAT 95; O2SAT 99
[2024-12-22 10:00] VITALS: BP 162/102; PULSE 80; RESP 14; TEMP 98.1; O2SAT 98
[2024-12-22] MEDS ORDERED: NALT50TA5 PO (10:17)
[2024-12-22] MEDS ORDERED: THIA100T70 PO (10:17)
[2024-12-22] MEDS ORDERED: FOLI0.4T6 PO (10:17)
[2024-12-22] MEDS ORDERED: MULT-620 PO (10:17)
[2024-12-22 13:30] VITALS: RESP 17
--- NOTE | 2024-12-22 13:41 | DISCHARGE SUMMARY-Residence ---
Discharge Summary Providers to CC Resident Creating Document: AYLEEN FERRER RES ~ Discharge Summary Admission Diagnosis: ALCOHOL INTOXICATION, ALOC Hospital Course DATE OF ADMISSION: 12/20/24 DATE OF DISCHARGE: 12/22/24 Laboratory Tests Test 12/20/24 14:45 12/21/24 04:50 12/22/24 05:06 Prothrombin Time 9.9 SECONDS INR International Normalized Ratio 1.0 INR Activated Partial Thromboplast Time 26 SECONDS Coagulation Comments Phosphorus Level 2.7 MG/DL Pro-B-Type Natriuretic Peptide 33 PG/ML White Blood Count 6.2 X10'3 4.9 X10'3 Red Blood Count 3.95 X10'6 4.18 X10'6 Hemoglobin 13.2 g/dl 13.9 g/dl Hematocrit 38.1 % 41.0 % Mean Corpuscular Volume 96.5 FL 98.1 FL Mean Corpuscular Hemoglobin 33.4 PG 33.4 PG Mean Corpuscular Hemoglobin Concent 34.6 g/dL 34.0 g/dL Red Cell Distribution Width 14.6 % 14.4 % Platelet Count 214 X10'3 204 X10'3 Mean Platelet Volume 7.4 FL 7.8 FL Neutrophils (%) (Auto) 61.9 % 64.6 % Lymphocytes (%) (Auto) 25.3 % 23.5 % Monocytes (%) (Auto) 9.7 % 8.3 % Eosinophils (%) (Auto) 2.5 % 3.3 % Basophils (%) (Auto) 0.6 % 0.3 % Neutrophils # (Auto) 3.8 X10'3 3.2 X10'3 Lymphocytes # (Auto) 1.6 X10'3 1.2 X10'3 Monocytes # (Auto) 0.6 X10'3 0.4 X10'3 Eosinophils # (Auto) 0.2 X10'3 0.2 X10'3 Basophils # (Auto) 0.0 X10'3 0.0 X10'3 CBC Comment Sodium Level 136 MMOL/L 141 MMOL/L Potassium Level 3.9 MMOL/L 3.9 MMOL/L Chloride Level 103 MMOL/L 106 MMOL/L Carbon Dioxide Level 26.1 MMOL/L 28.4 MMOL/L Anion Gap 7 7 Blood Urea Nitrogen 13 MG/DL 11 MG/DL Creatinine 0.51 MG/DL 0.62 MG/DL Estimated GFR/1.73 m2 > 90 ML/MIN > 90 ML/MIN BUN/Creatinine Ratio 25.5 17.7 Glucose Level 99 MG/DL 110 MG/DL Calcium Level 8.1 MG/DL 8.5 MG/DL Magnesium Level 1.7 MG/DL 1.9 MG/DL Total Bilirubin 0.5 MG/DL 0.5 MG/DL Aspartate Amino Transf (AST/SGOT) 24 U/L 27 U/L Alanine Aminotransferase (ALT/SGPT) 26 U/L 29 U/L Alkaline Phosphatase 54 IU/L 54 IU/L Total Protein 6.6 G/DL 6.8 G/DL Albumin 3.0 G/DL 2.9 G/DL Globulin 3.6 G/DL 3.9 G/DL Albumin/Globulin Ratio 0.8 0.7 Chemistry Comments Discharge Diagnosis\\Comment: 1. Alcohol Use Disorder: Acute Intoxication 2. Suicidal Ideation: 3. Acute Hypoxemic Respiratory Failure ruled out Operations\\Procedures: None Consultants: None Complications: None Condition on DC: Stable New Medications: Folic Acid* (Folic Acid*) 0.4 Mg Tablet 1 TAB PO DAILY for 30 Days, #30 TAB Multivitamins (Multivitamins) 1 Each Tablet 1 TAB PO DAILY for 30 Days, #30 TAB 0 Refills Naltrexone Hcl (Naltrexone Hcl) 50 Mg Tablet 1 TAB PO DAILY for 14 Days, #14 TAB 0 Refills Thiamine Mononitrate (Vitamin B-1) 100 Mg Tablet 1 TAB PO DAILY for 30 Days, #30 TAB 0 Refills Discharge Summary: History of present illness The patient was admitted with the following HPI: "This patient is a 54 y/o male with history of alcoholism chronic, including currently abusing alcohol, chronic tobacco abuse including currently, hepatic steatosis secondary to alcohol abuse, history of remote history of methamphetamine and cocaine abuse, clean now, history of abdominal surgery, low- back pain kidney stones, ventral hernia, presented today to emergency department chief complaint alcoholism, acute alcohol intoxication, altered level of consciousness, asking get help for detoxication. In addition patient was brought in by his mother for alcohol intoxication. Patient was reportedly sober in 2021, but relapsed and has since been binge drinking on and off. When he does drink, he states he routinely drinks about 1 to 1.5 pints a day of liquor. He states his most recent binge drinking episode has been over the past two days. Patient was making suicidal statements per his mother. He is also asking for help with detox as he is trying to quit but is scared of withdrawal symptoms. He reports current symptoms including abdominal pain and diarrhea. He denies any nausea or vomiting. He also endorses feeling shaky.Patient denies any other associated symptoms at this time. Patient denies any other alleviating or exacerbating factors. In emergency department patient was evaluated by physician was diagnosed with alcoholism, alcohol intoxication acute, and alcohol withdrawal syndrome, and decision was made to admit patient for further evaluation and treatment, no additional complaint or concern." Hospital course 51-year-old male patient admitted for alcohol intoxication and suicidal ideation. He reports consuming approximately 2 pints of vodka daily. He was intoxicated yesterday and has no recollection of events prior to his arrival at the hospital. Currently, the patient does not show any signs of alcohol withdrawal, is able to tolerate an oral diet, and denies any symptoms such as nausea, vomiting, abdominal pain, tremors, or anxiety. Additionally, the patient indicated that he experienced suicidal thoughts while under the influence of alcohol yesterday; however, he has since denied any suicidal ideation or plans today. He was cleared by [facility] from the 1798. On remaining symptom is occasional dizziness and he had orthostatic hypotension for which he was recommended to increase water intake and monitor the blood pressure closely. Patient is stable to be discharged with outpatient follow-up. He is motivated to stop drinking and asked for medication. He will be discharged with naltrexone and is oriented to continue following with his PCP. Abdomen ultrasound The liver is increased in echogenicity. There is no focal parenchymal abnormality. No intrahepatic biliary ductal dilatation is present. The liver measures 16.7 cm. The gallbladder is normal with no evidence for stones or wall thickening. The common bile duct is normal in caliber, measuring 3 mm. The pancreas is not seen. The right kidney is normal in echogenicity and measures 12.9 cm in length. There is no evidence for hydronephrosis or calculi. Impression: Fatty liver. Discharge physical exam Awake , alert, and oriented x4 HEENT: Atraumatic, normocephalic, EOMI, anicteric sclera ; pink conjunctiva Neck: Trachea midline. Supple, full range of motion, no JVD Cardiac: Regular rhythm, regular rate with no murmurs all over the precordium. Respiratory: Equal breath sounds bilaterally, no tachypnea, no wheezing ,rub or rales, Chest wall is symmetric and without deformity. Gastrointestinal: Abdomen symmetric, non-distended, soft, non-tender, normal bowel sounds x4 quadrant, normoactive, no hepatosplenomegaly Musculoskeletal: No pedal edema Neurological: Mental status exam: alert and consciousness, orientation, memory, speech. No tremors noted. - Cranial nerve test: Cranial nerves 2-12 intact - Motor system: Normal Nutrition, normal tone, Power 5/5, no involuntary movements - Sensory system: Intact - Reflex testing: Biceps, triceps and knee reflexes 2+ - Cerebellar: Normal Skin: Warm and dry Discharge medications New Medications: Folic Acid* 0.4 Mg Tablet Multivitamins 1 Each Tablet Naltrexone Hcl 50 Mg Tablet Thiamine Mononitrate (Vitamin B-1) 100 Mg Tablet Discharge instructions Follow-up with your primary care physician in one week Abstain from alcohol and tobacco use Increase water intake Take naltrexone 50 mg daily. The dose can be increased to 100 mg daily after one week, after re-evaluation with your PCP Take thiamine, folic acid and multivitamins daily Come back in case of severe tremors, chest pain, shortness of breath or any concerning symptoms. *Problems/Diagnosis: (1) Alcoholic intoxication Status: Acute (2) Dehydration Status: Acute (3) Weakness Status: Acute (4) Alcohol abuse Status: Acute (5) Alcohol dependence Status: Chronic Total Time Spent on D/C: > 30 Minutes Date of Service: Dec 22, 2024 Billing Provider: GENIA ALVARADO MD Problem Qualifiers (1) Alcoholic intoxication: Complication of substance-induced condition: uncomplicated Qualified Codes: F10.920 - Alcohol use, unspecified with intoxication, uncomplicated (2) Alcohol dependence: Substance use status: with intoxication Complication of substance-induced condition: uncomplicated Qualified Codes: F10.220 - Alcohol dependence with intoxication, uncomplicated AYLEEN FERRER, RES Dec 22, 2024 13:36
== END 2024-12-22 14:24 | disposition home or self-care (01) | DRG 42 ==
LOC: ER 09:38 → ED HOLD 14:58 → ORTHO 4S 21:05
PROVIDERS: ADMIT Family Medicine; ATTEND Family Medicine
DX: G31.2 Degeneration of nervous system due to alcohol (principal); G93.41 Metabolic encephalopathy; E86.0 Dehydration; R45.851 Suicidal ideations; F14.10 Cocaine abuse, uncomplicated; F10.230 Alcohol dependence with withdrawal, uncomplicated; F10.229 Alcohol dependence with intoxication, unspecified; K76.0 Fatty (change of) liver, not elsewhere classified; Z72.0 Tobacco use; Z87.442 Personal history of urinary calculi; Z88.6 Allergy status to analgesic agent
CPT/HCPCS: 36415; 76700; 80053; 80305; 80320; 81001; 82550; 83690; 83735; 83880; 84100; 84484; 85025; 85610; 85730; 87081; 93005; 96365; 96366; 96367; 99285; A4615; G0378; J1644; J2405; J3411; J3490; J7030